=== PATIENT | female | born 1950 | race Caucasian/White ===

== ENCOUNTER → 2019-05-08 11:07 | Outpatient (BNVA) | payer MEDICARE, SELFPAY | PROVIDERS: Family Provider Family Medicine; PCP Family Medicine; Visit Provider Urology | DX: N30.00 Acute cystitis without hematuria (principal) | CPT/HCPCS: 81001 ==

== ENCOUNTER → 2019-06-18 09:56 | Outpatient (BNVA) | payer MEDICARE, SELFPAY | PROVIDERS: Family Provider Family Medicine; PCP Nurse Practitioner; Visit Provider Nurse Practitioner | DX: Z76.89 Persons encountering health services in other specified circumstances (principal); E03.9 Hypothyroidism, unspecified | CPT/HCPCS: 80053; 80061; 82306; 84443; 85025 ==

== ENCOUNTER → 2020-04-19 10:54 | Outpatient (BNVA) | payer MEDICARE, SELFPAY | PROVIDERS: Family Provider Family Medicine; PCP Nurse Practitioner; Visit Provider Emergency Medicine | DX: Z20.822 Contact with and (suspected) exposure to COVID-19 (principal) | CPT/HCPCS: 87635 ==

== ENCOUNTER → 2020-11-05 10:03 | Outpatient (BNVA) | payer MEDICARE, SELFPAY | PROVIDERS: PCP Family Medicine Adult Medicine; Visit Provider Nurse Practitioner Family | DX: N30.00 Acute cystitis without hematuria (principal) | CPT/HCPCS: 81003 ==

== ENCOUNTER → 2020-12-11 10:18 | Outpatient (BNVA) | payer MEDICARE, SELFPAY | PROVIDERS: PCP Family Medicine Adult Medicine; Visit Provider Family Medicine Adult Medicine | DX: E03.9 Hypothyroidism, unspecified (principal); E78.5 Hyperlipidemia, unspecified; J30.9 Allergic rhinitis, unspecified; R52 Pain, unspecified; N94.9 Unspecified condition associated with female genital organs and menstrual cycle; Z68.22 Body mass index [BMI] 22.0-22.9, adult; F17.210 Nicotine dependence, cigarettes, uncomplicated; Z71.89 Other specified counseling | CPT/HCPCS: 80053; 80061; 84443; 85025 ==

== ENCOUNTER → 2021-03-23 14:50 | Outpatient (BNVA) | payer MEDICARE, SELFPAY | PROVIDERS: PCP Family Medicine Adult Medicine; Visit Provider Family Medicine Adult Medicine | DX: E03.9 Hypothyroidism, unspecified (principal); E78.5 Hyperlipidemia, unspecified; R63.4 Abnormal weight loss; R73.03 Prediabetes | CPT/HCPCS: 80053; 80061; 83036; 84443; 85025 ==

== ENCOUNTER 2021-07-09 08:54 | Outpatient (CLI) | payer MEDICARE, SELFPAY ==
--- NOTE | 2021-07-09 09:03 | XR_ITS ---
WS: [id number] Exam: XR hip BI 3-4V wo/[place] [id number] Date/Time of Exam: 07/09/2021 9:09 AM Reason For Exam: acute Left hip pain Left hip. No fracture or dislocation. Moderate DJD of the joint compartment. Normal soft tissues. XR/XR hip BI 3-4V wo/[place] [id number] IMPRESSION: 1. Moderate DJD. No fracture. Right hip. Moderate degenerative change of the joint compartment. No fracture o r dislocation. Normal soft tissues. The pelvis is intact. IMPRESSION: 1. Moderate DJD of the right hip. No fracture or dislocation.
--- NOTE | 2021-07-09 09:03 | XR_ITS ---
WS: [id number] Exam: XR lumbar spine 2-3V* [id number] Date/Time of Exam: 07/09/2021 9:03 AM Reason For Exam: Left back/hip pain Comparison 07/16/2020. No acute fracture or dislocation. Facet DJD at all levels. Osteopenia. Mild spondylosis. Slight dext roscoliosis. Mild degenerative narrowing of the L3-4 disc. XR/XR lumbar spine 2-3V* [id number] IMPRESSION: 1. No acute fracture or malalignment. 2. Degenerative changes and osteopenia. Mild dextroscoliosis.
== END 2021-07-09 08:55 | disposition home or self-care (01) ==
PROVIDERS: PCP Family Medicine Adult Medicine; Visit Provider Family Medicine Adult Medicine
DX: M54.16 Radiculopathy, lumbar region (principal); M41.86 Other forms of scoliosis, lumbar region; M85.88 Other specified disorders of bone density and structure, other site; M16.12 Unilateral primary osteoarthritis, left hip
CPT/HCPCS: 72100; 73522

== ENCOUNTER → 2021-07-21 10:34 | Outpatient (BNVA) | payer MEDICARE, SELFPAY | PROVIDERS: PCP Family Medicine Adult Medicine; Referring Provider Family Medicine Adult Medicine; Visit Provider Physician Assistant | DX: M51.36 Other intervertebral disc degeneration, lumbar region (principal); M54.16 Radiculopathy, lumbar region | CPT/HCPCS: 72110; 99203; 99999 ==

== ENCOUNTER → 2021-07-27 13:11 | Outpatient (BNVA) | payer MEDICARE, SELFPAY | PROVIDERS: PCP Family Medicine Adult Medicine; Visit Provider Urology | DX: N30.00 Acute cystitis without hematuria (principal) | CPT/HCPCS: 81003; 87086; 99213 ==

== ENCOUNTER → 2021-08-25 13:24 | Outpatient (BNVA) | payer MEDICARE, SELFPAY | PROVIDERS: PCP Family Medicine Adult Medicine; Referring Provider Family Medicine Adult Medicine; Visit Provider Orthopaedic Surgery | DX: M25.551 Pain in right hip (principal); M25.552 Pain in left hip | CPT/HCPCS: 99213; 99214 ==

== ENCOUNTER 2021-09-03 12:05 | Outpatient (CLI) | payer MEDICARE, SELFPAY ==
--- NOTE | 2021-09-03 13:00 | MR_ITS ---
WS: [id number] MRI LUMBAR SPINE NONCONTRAST TECHNIQUE: Sagittal T1, T2 and STIR imaging. Axial T1 and T2 imaging. CLINICAL INFORMATION: back pain COMPARISON: None. FINDINGS: Mild lumbar curve. No acute compression. No high-grade central canal stenosis. Mild disc bulging L3-L 5. Schmorl's node superior endplate L4 with mild chronic appearing compression deformity. Small amoun t of edema in the superior endplate eccentric to the LEFT. L1-L2: Normal. L2-L3: Normal L3-L4: Mild annular bulging. Mild central canal stenosis. Slight impingement traversing L4 nerve root s bilaterally. Mild facet arthropathy. Small bilateral foraminal protrusions with mild bilateral fora patito narrowing LEFT greater than RIGHT. L4-L5: Mild annular bulging with slight effacement of ventral thecal sac. Slight impingement traversi ng L5 nerve roots bilaterally. Mild central canal stenosis. Prominent LEFT foraminal protrusion impin ges the exiting LEFT L4 nerve root with moderate LEFT foraminal narrowing. RIGHT foramen is patent. M ild facet arthropathy. L5-S1: Mild annular bulging with slight effacement of ventral thecal sac. Slight impingement traversi ng S1 nerve roots bilaterally. Mild facet arthropathy. Mild RIGHT greater than LEFT foraminal narrowi ng. Adrenal glands are normal. MR/MR lumbar spine wo con* [id number] IMPRESSION: 1. Mild lumbar curve. No acute compression. No high-grade central canal stenos is. 2. Broad-based annular bulging L4-L5 with mild central canal stenosis and impi ngement traversing L5 nerve roots bilaterally. 3. Mild central canal stenosis L3-L4. 4. Prominent LEFT foraminal protrusion L4-L5 extending into the proximal neura l foramen impinges the exiting LEFT L4 nerve root. Recommend correlation with L EFT L4 nerve root symptoms. 5. Mild bilateral L3-L4 and RIGHT L5-S1 foraminal narrowing. 6. Mild facet arthropathy L4-L5 and L5-S1. 7. Mild chronic appearing compression deformity superior endplate L4 with endp late Schmorl's node. Small amount of edema in the superior endplate eccentric t o the LEFT.
== END 2021-09-03 12:06 | disposition home or self-care (01) ==
LOC: RAD 12:09
PROVIDERS: PCP Family Medicine Adult Medicine; Visit Provider Physician Assistant
DX: M54.50 Low back pain, unspecified (principal); M54.16 Radiculopathy, lumbar region
CPT/HCPCS: 72148

== ENCOUNTER 2022-01-12 13:04 | Emergency (ER) | payer MEDICARE, SELFPAY ==
[2022-01-12 13:07] VITALS: BP 145/89; PULSE 88; RESP 18; TEMP 36.6; O2SAT 96; BMI 21.2
--- NOTE | 2022-01-12 13:11 | USCV_ITS ---
Shahana Chambers Age: 71 Gender: F : 1950 Exam Date: 01/12/2022 14:03 Ordering Phys: Kalpesh Cabrales DO Technologist: CT [place] [facility] [place]: [place] PROCEDURES: Venous duplex imaging was performed in only the left lower extremity. The following venous structures were evaluated: common femoral vein, profunda vein, proximal portion of the greater saphenous vein, superficial femoral vein, and the popliteal vein. In addition, the posterior tibial and peroneal trunk were evaluated. FINDINGS: Normal 2-D Doppler and augmentation and compressibility throughout the lower extremity venous structures. Additional imaging through the proximal calf veins also reveals no thrombus. Limited evaluation of the greater saphenous vein is patent with no thrombus.. CONCLUSIONS No evidence of left lower extremity DVT. Wesly Garcia MD (Electronically Signed) Final Date: 12 January 2022 17:45 S
--- NOTE | 2022-01-12 15:26 | ED_ITS ---
HPI - General Adult General: Chief complaint: General Medical Stated complaint: Possible blood clot Time Seen by Provider: 01/12/22 15:26 History of Present Illness: Patient is a 71-year-old female comes to the ED with left lower leg swelling. Patient was seen at walk-in clinic earlier today and doctor was worried about patient having possible blood clot so she was sent here to the ED for an ultrasound. Denies any injury or trauma. Denies any chest pain, shortness of breath or hemoptysis. Denies any past blood clots and is not currently on a blood thinner. Associated symptoms: Deny chest pain, dyspnea, headache(s), nausea, rash, palpitations or vomiting Review of Systems Const: Denies: fever(s), chills or fatigue Eyes: Denies: change in vision or eye discomfort ENMT: Denies: throat pain, odynophagia, nasal discharge or nasal congestion Card: Denies: chest pain, palpitations, edema, swelling of feet/ankles, dyspnea on exertion or orthopnea Resp: Denies: dyspnea, productive cough or non-productive cough GI: Denies: abdominal pain, nausea, vomiting, diarrhea, constipation or hematochezia : Denies: flank pain, dysuria or hematuria Musc: Reports: extremity pain (Left lower leg) and extremity swelling (Left lower leg); Denies: neck pain or back pain Skin/Breast: Denies: rash or new lesions Neuro: Denies: headache(s), numbness in extremities or weakness in extremities PFS ED PFSH: Medical History Acute cystitis without hematuria Acute left lumbar radiculopathy Allergic rhinitis Anxiety and depression Environmental and seasonal allergies Genital atrophy of female Head pain, chronic Herpes zoster dermatitis Hyperlipidemia Hypothyroid Kidney disease Left hip pain Migraine headache without aura Pain of left side of body Prediabetes Weight loss Surgical History H/O tubal ligation Family History Other Diabetes Hypertension Social History Smoking and tobacco status: current some day smoker Alcohol intake: never Adopted: No Caregiver/support person: No Lives independently: No Household members: spouse Marital status: Current occupational status: retired History of recent travel: No Physical Exam Const: COMMON NORMALS: no acute distress, patient oriented x3, healthy appearing and alert GENERAL APPEARANCE: cooperative and comfortable HENMT: COMMON NORMALS: normocephalic HEAD & SCALP: normocephalic MOUTH: Normal oral and palatal mucosa present THROAT: posterior oropharynx normal and uvula midline Neck/C-Spine: COMMON NORMALS: supple GENERAL: Yes normal visual inspection Resp: COMMON NORMALS: normal respiratory effort, No retractions, No use of accessory muscles and clear to auscultation bilaterally AUSCULTATION: clear to auscultation bilaterally Cardio: COMMON NORMALS: regular rate, regular rhythm, S1 normal heart sound present, S2 normal heart sound present, No gallops present (Cardio), No clicks present (Cardio), No murmurs present (Cardio) and Peripheral pulses 2+ throughout RATE: regular rate RHYTHM: regular rhythm HEART SOUNDS: S1 normal heart sound present and S2 normal heart sound present PERIPHERAL PULSES: Peripheral pulses 2+ throughout GI: COMMON NORMALS: Normal to inspection, nondistended, normoactive bowel sounds present, Soft to palpation, non-tender and no masses PALPATION: Yes Soft to palpation : COMMON NORMALS: Yes no CVA tenderness BLADDER/KIDNEY EXAM: Yes no CVA tenderness Back/Pelvis: COMMON NORMALS: no CVA tenderness Extremity: NARRATIVE EXTREMITY EXAM: Patient does have some visible varicose veins on lower extremities bilaterally. GENERAL: Yes calf tenderness (Left calf tenderness) and No edema Neuro: COMMON NORMALS: patient oriented x3 SENSORIUM/ORIENTATION: Yes alert GAIT: Yes Normal gait present Skin: GENERAL SKIN EXAM: dry skin Course Vital Signs: Vital signs: Vital Signs Temperature 97.8 F 01/12/22 13:07 Pulse Rate 88 01/12/22 13:07 Respiratory Rate 18 01/12/22 13:07 Blood Pressure 145/89 01/12/22 13:07 Pulse Oximetry 96 01/12/22 13:[address] thod 01/12/22 13:07 [facility] - General Adult Medical Decision Making Patient is a 71-year-old female comes to the ED with left lower leg swelling. Patient was seen at walk-in clinic earlier today and doctor was worried about patient having possible blood clot so she was sent here to the ED for an ultrasound. Denies any injury or trauma. Denies any chest pain, shortness of breath or hemoptysis. Denies any past blood clots and is not currently on a blood thinner. Vitals are stable. Patient has some left calf tenderness upon exam but no edema. Ultrasound venous duplex of left lower extremity showed no DVTs or blood clots seen. She was stable for discharge home. Told to follow-up with her PCP within the next week for reevaluation. Patient understood and agreed with plan. Discharge Plan Discharge Patient Disposition: Home Clinical Impression: Pain in left lower leg Condition: Stable Prescriptions: No Action nitroglycerin 0.4 mg tablet, sublingual 0.4 mg sublingual Q5M PRN Rx Instructions: do not exceed 3 doses per episode PreserVision AREDS [id number] capsule 1 cap PO BID niacin 50 mg tablet 50 mg PO DAILY ciprofloxacin HCl 500 mg tablet 500 mg PO BID Qty: 30 4RF Stool Softener 50 mg capsule 50 mg PO DAILY magnesium 200 mg tablet 200 mg PO DAILY cholecalciferol (vitamin D3) 1,250 mcg (50,000 unit) capsule 1,250 mcg PO DAILY estradiol [Estrace] 0.01 % (0.1 mg/gram) cream 1 g VAGINAL .weekly Qty: 42.5 5RF hydroxyzine HCl 25 mg tablet 25 mg PO .HS PRN (Reason: insomnia) Qty: 30 1RF triamcinolone acetonide [Nasacort] 55 mcg aerosol,spray 1 spray INTRANASAL DAILY Qty: 16.9 3RF tramadol 50 mg tablet 50 mg PO Q8H PRN (Reason: pain) 30 Days Qty: 60 2RF buspirone 5 mg tablet 5 mg PO TID Qty: 90 2RF amitriptyline 10 mg tablet 10 mg PO DAILY 90 Days Qty: 90 1RF levothyroxine 25 mcg tablet 25 mcg PO DAILY 90 Days Qty: 90 2RF meloxicam 7.5 mg tablet See Rx Instructions .ROUTE .COMPLEX Qty: 30 2RF Dose Instruction: TAKE 1 TABLET BY MOUTH EVERY DAY Rx Instructions: TAKE 1 TABLET BY MOUTH EVERY DAY sertraline 25 mg tablet 25 mg PO DAILY Qty: 30 5RF gabapentin 100 mg capsule 100 mg PO TID Qty: 90 2RF Discharge Orders: Discharge ED (Routine); Ordered 01/12/22 Ordered By: Prabhjot Chester Referrals: Dung Lal MD [Primary Care Provider] - Discharge Diet: Regular Discharge Activity: Increase activity as tolerated Activity Restrictions/Additional Instructions: Follow-up with medical provider as directed in the next 5-7 days for reevaluation. Continue taking all home medications as prescribed. Return to the ER or your medical provider if condition worsens. Please read and understand discharge instructions. Thank you for choosing [facility] for your healthcare needs today. Please realize this is an emergency room and that we are providing you with a medical screening exam and this may not be complete and all inclusive of all the testing and or work up that you may need to determine your ailment or severity of your illness. It is very important that you follow up as instructed or that you return to the Emergency Department should you have concerns or if your condition changes or worsens in any way. Coding Level of Care Code ED [place] Operator for Javig Fwd Exam Comprehensive
[2022-01-12] MEDS: ketorolac 30 mg/mL INJ IM (15:58)
== END 2022-01-12 16:46 | disposition home or self-care (01) ==
PROVIDERS: Emergency Provider Physician Assistant; PCP Family Medicine Adult Medicine
DX: M79.662 Pain in left lower leg (principal)
CPT/HCPCS: 93971; 96372; 99284; J1885

== ENCOUNTER → 2022-01-22 11:50 | Outpatient (BNVA) | payer MEDICARE, SELFPAY | PROVIDERS: PCP Family Medicine Adult Medicine; Visit Provider Family Medicine Adult Medicine | DX: R73.03 Prediabetes (principal); E03.9 Hypothyroidism, unspecified; R63.4 Abnormal weight loss | CPT/HCPCS: 80053; 83036; 84443; 85025 ==

== ENCOUNTER → 2022-08-09 07:57 | Outpatient (BNVA) | payer MEDICARE, SELFPAY | PROVIDERS: PCP Family Medicine Adult Medicine; Visit Provider Obstetrics & Gynecology | DX: R10.2 Pelvic and perineal pain (principal); R33.9 Retention of urine, unspecified; Z12.4 Encounter for screening for malignant neoplasm of cervix | CPT/HCPCS: 84315; 87624 ==

== ENCOUNTER → 2022-09-07 11:08 | Outpatient (BNVA) | payer MEDICARE, SELFPAY | PROVIDERS: PCP Family Medicine Adult Medicine; Visit Provider Obstetrics & Gynecology | DX: R33.9 Retention of urine, unspecified (principal) | CPT/HCPCS: 76830; 76856 ==

== ENCOUNTER 2022-09-09 12:57 | Outpatient (CLI) | payer MEDICARE, SELFPAY ==
--- NOTE | 2022-09-09 13:19 | MM_ITS ---
WS: [id number] SCREENING DIGITAL TOMOSYNTHESIS MAMMOGRAM WITH CAD HISTORY: SCREEN COMPARISON: 12/09/2009 Bilateral CC and MLO with tomosynthesis views submitted. Synthetic mammography reviewed. Computer aid ed detection analyzed. Breast composition: There are scattered areas of fibroglandular density. No suspicious masses, microc alcifications or architectural distortion. Central asymmetries within each breast were present on the prior study. No new mass or calcification. MM/[place] [id number] IMPRESSION: BI-RADS: 2-Benign FOLLOW UP: 1 Year Follow-up
== END 2022-09-09 12:58 | disposition home or self-care (01) ==
PROVIDERS: PCP Family Medicine Adult Medicine; Visit Provider Obstetrics & Gynecology
DX: Z12.31 Encounter for screening mammogram for malignant neoplasm of breast (principal)
CPT/HCPCS: 77063; 77067; 84315; 87624

== ENCOUNTER 2023-01-07 09:09 | Outpatient (CLI) | payer MEDICARE, SELFPAY ==
--- NOTE | 2023-01-07 09:17 | FL_ITS ---
WS: [id number] Barium swallow and esophagram, 01/07/2023 Clinical Data: CANDIDAL STOMATITIS/DYSPHAGIA,OROPHARYNGEAL PHASE Comparison: None. Fluoroscopy time: 1min [id number] # of spot films: 31 Findings: The patient swallowed the thick and thin barium, and it flowed through the hypopharynx without hesita tion. No stricture, mass, polyp or erosion was seen. There was osteoarthritic anterior spurring at C5 -C6 which impinged slightly onto the posterior hypopharynx The barium entered the esophagus and there was normal motility throughout. There were occasional tert iary contractions of the distal two thirds of the esophagus. No hiatal hernia, reflux, stricture, kit yp, mass, erosion or ulcer was noted. Impression: 1. 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 2. Occasional tertiary contractions in the distal two thirds of the esophagus.
--- NOTE | 2023-01-07 10:15 | US_ITS ---
WS: [id number] ULTRASOUND THYROID TECHNIQUE: Ultrasound of the thyroid. CLINICAL INFORMATION: LOCALIZED SWELLING,MASS LUMP,NECK COMPARISON: Ultrasound 06/26/2015 FINDINGS: Thyroid: Right and left thyroid lobes are normal in size with heterogeneous coarse echotexture and in creased vascularity. No thyroid nodules are present. Right thyroid lobe: 4.0 cm x 1.1 cm x 2.2 cm Left thyroid lobe: 3.9 cm x 1.3 cm x 1.4 cm. Isthmus: 0.2 mm. Cervical lymphadenopathy: None. IMPRESSION: 1. Slightly enlarged heterogeneous thyroid with coarse echotexture and increased vascularity is nons pecific but can be seen with thyroiditis, including Roberto's and autoimmune thyroiditis. Recommend correlation with laboratory studies. 2. No dominant cystic or solid nodules to target for biopsy.
== END 2023-01-07 09:10 | disposition home or self-care (01) ==
LOC: RAD 09:10
PROVIDERS: PCP Family Medicine Adult Medicine; Visit Provider Otolaryngology
DX: B37.0 Candidal stomatitis (principal); R13.10 Dysphagia, unspecified; M47.892 Other spondylosis, cervical region
CPT/HCPCS: 74220; 76536

== ENCOUNTER → 2023-01-25 14:39 | Outpatient (BNVA) | payer MEDICARE, SELFPAY | PROVIDERS: PCP Family Medicine Adult Medicine; Visit Provider Family Medicine Adult Medicine | DX: E03.9 Hypothyroidism, unspecified (principal); F41.9 Anxiety disorder, unspecified; F32.A Depression, unspecified; E78.5 Hyperlipidemia, unspecified; R73.03 Prediabetes; Z87.898 Personal history of other specified conditions | CPT/HCPCS: 80053; 83036; 84443; 85025 ==

== ENCOUNTER → 2023-02-26 11:30 | Outpatient (BNVA) | payer MEDICARE, SELFPAY | PROVIDERS: PCP Family Medicine Adult Medicine; Visit Provider Emergency Medicine | DX: R39.9 Unspecified symptoms and signs involving the genitourinary system (principal); N10 Acute pyelonephritis | CPT/HCPCS: 81000; 87077; 87086; 87184 ==

== ENCOUNTER → 2024-05-12 10:09 | Outpatient (BNVA) | payer MEDICARE, SELFPAY | PROVIDERS: PCP Family Medicine Adult Medicine | DX: R39.9 Unspecified symptoms and signs involving the genitourinary system (principal) | CPT/HCPCS: 81000 ==

== ENCOUNTER → 2024-05-14 08:31 | Outpatient (BNVA) | payer MEDICARE, SELFPAY | PROVIDERS: PCP Family Medicine Adult Medicine; Visit Provider Obstetrics & Gynecology | DX: N94.89 Other specified conditions associated with female genital organs and menstrual cycle (principal); R33.9 Retention of urine, unspecified | CPT/HCPCS: 84315; 87086 ==

== ENCOUNTER → 2024-05-30 11:53 | Outpatient (BNVA) | payer MEDICARE, SELFPAY | PROVIDERS: PCP Family Medicine Adult Medicine; Visit Provider Obstetrics & Gynecology | DX: R39.9 Unspecified symptoms and signs involving the genitourinary system (principal); R33.9 Retention of urine, unspecified | CPT/HCPCS: 81000; 87086 ==

== ENCOUNTER → 2024-06-25 08:27 | Outpatient (BNVA) | payer MEDICARE, SELFPAY | PROVIDERS: PCP Family Medicine Adult Medicine; Visit Provider Obstetrics & Gynecology | DX: R10.2 Pelvic and perineal pain (principal); D25.9 Leiomyoma of uterus, unspecified | CPT/HCPCS: 76830 ==

== ENCOUNTER → 2024-07-10 10:09 | Outpatient (BNVA) | payer MEDICARE, SELFPAY | PROVIDERS: PCP Family Medicine; Visit Provider Family Medicine | DX: E78.2 Mixed hyperlipidemia (principal); E03.9 Hypothyroidism, unspecified; R73.9 Hyperglycemia, unspecified | CPT/HCPCS: 80053; 80061; 83036; 84439; 84443; 85025 ==

== ENCOUNTER → 2025-01-24 08:32 | Outpatient (BNVA) | payer MEDICARE, SELFPAY | PROVIDERS: PCP Family Medicine; Visit Provider Family Medicine | DX: E78.2 Mixed hyperlipidemia (principal); E03.9 Hypothyroidism, unspecified | CPT/HCPCS: 80053; 80061; 84439; 84443 ==